=== PATIENT | male | born 1995 | race Caucasian/White ===

== ENCOUNTER 2021-06-07 00:36 | Emergency (ER) | payer BC ==
[~2021-06-07] VITALS: Ht 180.3 cm; Wt 59.7 kg
--- NOTE | 2021-06-07 00:39 | PHYS DOC ---
General Adult HPI: HPI: ".. I ve got really bad dental pain.. Here on Lt. '' Patient is a 25 year old male who presents with above hx and complaints of dental pain. Pain is localized to teeth 17, 18 area. Facial edema and adenopathy at angle of mandible . Multiple other areas of dental decay. And gingivitis. Jovani no history recent travel. Has no history of specific ill contacts. No history of immunosuppression. Pt. follow s with Dr. Juarez. Review of Systems: Review of Systems: Constitutional: Denies fever or chills Eyes: Denies change in visual acuity HENT: Denies nasal congestion or sore throat. Complains of dental pain and facial swelling Respiratory: Denies cough or shortness of breath Cardiovascular: Denies chest pain or edema GI: Denies abdominal pain, nausea, vomiting, bloody stools or diarrhea : Denies dysuria Musculoskeletal: Denies back pain or joint pain Integument: Denies rash Neurologic: Denies headache, focal weakness or sensory changes Endocrine: Denies polyuria or polydipsia Lymphatic: Denies swollen glands Psychiatric: Denies depression or anxiety Family History: Family History: Noncontributory Current Medications: Current Meds: See nursing for home meds Allergies: Allergies: Allergic to peanuts Physical Exam: PE: Constitutional: Moderate acute distress, non-toxic appearance. [] HENT: Normocephalic, atraumatic, bilateral external ears normal, oropharynx moist, no oral exudates, nose normal. Multiple areas of dental decay. Loca lized pain to the area of 17 and 18 Eyes: PERRLA, EOMI, conjunctiva normal, no discharge. [] Neck: Normal range of motion, no tenderness, supple, no stridor. [] Cardiovascular:Heart rate regular rhythm, no murmur [] Lungs & Thorax: Bilateral breath sounds to apex with scattered wheezes auscultation [] Abdomen: Bowel sounds normal, soft, no tenderness, no masses, no pulsatile masses. [] Skin: Warm, dry, no erythema, no rash. [] Back: No tenderness, no CVA tenderness. [] Extremities: No tenderness, no cyanosis, no clubbing, ROM intact, no edema. [] Neurologic: Alert and oriented X 3, normal motor function, normal sensory function, no focal deficits noted. [] Psychologic: Affect anxious , judgement normal, mood normal. [] EKG: EKG: [] Radiology/Procedures: Radiology/Procedures: [] Heart Score: C/O Chest Pain: N/A Risk Factors: Risk Factors: DM, Current or recent (<one month) smoker, HTN, HLP, family history of CAD, obesity. Risk Scores: Score 0 - 3: 2.5% MACE over next 6 weeks - Discharge Home Score 4 - 6: 20.3% MACE over next 6 weeks - Admit for Clinical Observation Score 7 - 10: 72.7% MACE over next 6 weeks - Early Invasive Strategies Course & Med Decision Making: Course & Med Decision Making Pertinent Labs and Imaging studies reviewed. (See chart for details) Patient must follow-up with dentist or oral surgeon. Of most likely need removal of the infected teeth that are rotted into his gum on area 17/18. Patient take Keflex 500 mg 3 times a day. Take Tylenol and ibuprofen for pain. Follow-up primary care. Return if any concerns. Impression: 1. Dental infection 2. Dental caries 3. Tobacco use [] Dragon Disclaimer: Dragon Disclaimer: This electronic medical record was generated, in whole or in part, using a voice recognition dictation system. Departure Departure: Referrals: KAITLIN JUAREZ MD (PCP) Scripts Cephalexin (KEFLEX) 500 Mg Capsule 500 MG PO TID for dental infection for 10 Days, #30 CAP Prov: BRIAN HENDERSON MD 06/07/21 Joel Disclaimer This chart was dictated in whole or in part using Voice Recognition software in a busy, high-work load, and often noisy Emergency Department environment. It may contain unintended and wholly unrecognized errors or omissions. BRIAN HENDERSON MD Jun 07, 2021 00:39
[2021-06-07 00:45] VITALS: BP 163/91
[2021-06-07] MEDS ORDERED: CEPH500C PO (02:13)
[2021-06-07] MEDS ORDERED: cefTRIAXone IM 1 GM VIAL IM ONE (02:15)
[2021-06-07] MEDS ORDERED: KETOROLAC 60 MG/2 ML VIAL. IM ONE (02:15)
[2021-06-07] MEDS ORDERED: oxyCODONE/APAP 5/325 1 TAB TABLET PO ONE (02:15)
== END 2021-06-07 02:42 | disposition home or self-care (01) ==
LOC: ER 00:36
DX: K04.7 Periapical abscess without sinus (principal); K02.9 Dental caries, unspecified; Z72.0 Tobacco use; Z91.010 Allergy to peanuts
CPT/HCPCS: 96372; 99284; J0696; J1885